=== PATIENT | female | born 1935 | race Caucasian/White ===

== ENCOUNTER 2016-08-11 18:30 | Emergency (ER) | payer OTHER ==
[2016-08-11] MEDS ORDERED: XYLOCAINE-MPF 1% INJ ONE (19:15)
--- NOTE | 2016-08-11 19:28 | PROVIDER DOCUMENTATION ---
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 Denies loc, blurry vision, changes in vision, nausea or vomiting. Denies chest pain, sob, or symptoms that caused her to fall. Review of Systems - Adult - REVIEW OF SYSTEMS - ADULT Constitutional: reports: no symptoms reported. denies: chills, fever, fatique Eyes: reports: no symptoms reported. denies: decreased vision, blurred vision, double vision, eye pain Ears, Nose, Mouth & Throat: reports: no symptoms reported. denies: ear pain, nose pain, throat pain Cardiovascular: reports: no symptoms reported. denies: chest pain, palpitations Respiratory: reports: no symptoms reported. denies: cough, dyspnea on exertion , shortness of breath Gastrointestinal: reports: no symptoms reported. denies: abdominal pain, diarrhea, nausea, vomiting Genitourinary: reports: no symptoms reported. denies: dysuria, discharge, frequency, incontinence Musculoskeletal: reports: see HPI, bone pain, joint pain, muscle aches. denies : back pain, neck pain Integumentary: reports: no symptoms reported. denies: rash Neurological: reports: see HPI, loss of balance. denies: ataxia, dizziness/ vertigo, headache/migraines, paresthesia, seizure, slurred speech, syncope Psychiatric: reports: no symptoms reported Endocrine: reports: no symptoms reported Hematologic/Lymphatic: reports: no symptoms reported Allergic/Immunologic: reports: no symptoms reported All Other Systems: Reviewed and Negative Past History - Adult - PAST MEDICAL HISTORY-ADULT Review of Records: reports: Old Records Reviewed, Nursing Assessment Review, Medications Reviewed, Social history reviewed & non-contributory. Major Childhood Illnesses: reports: denies history Cardiovascular: reports: denies history Respiratory: reports: denies history Gastrointestinal: reports: denies history Obstetrical/Gynecological: reports: denies history Genitourinary: reports: kidney disease Musculoskeletal: reports: denies history Neurological: reports: denies history Endocrine/Immune: reports: denies history Other Conditions: reports: denies history - FAMILY HISTORY Family History: reviewed, not pertinent - SOCIAL HISTORY Smoking: denies, non-smoker Substance Use: none/never Alcohol Use Frequency: never Physical Exam-Injury Related - Physical Exam-Injury Related Initial Vital Signs Reviewed: Yes General Appearance: appears well, alert, no apparent distress Eyes: PERRL/EOMI, pink conjunctivae Head, Ears, Nose, Mouth & Throat: moist mucous membranes, normal ENT inspection , other (hematoma on the right forehead) Neck: non-tender, full range of motion, supple, normal inspection. negative: C- spine tenderness, decresed ROM Respiratory: chest non-tender, lungs clear, normal breath sounds, no pleuratic chest pain, no respiratory distress, no accessory muscle use. negative: respiratory distress, decreased breath sounds, accessory muscle use, crackles, rales, rhonchi, stridor, wheezing Cardiovascular: normal peripheral pulses, regular rate, rhythm Peripheral Pulses: radial (R): 2+, radial (L): 2+ Extremity: other (right pinky has obvious step off at the PIP. 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, no motor/sensory deficits Psych/Mental Status: normal mood/affect, normal thought content, normal thought process, oriented x 3 - Glascow Coma Score Best Eye Response ([place]): (4) open spontaneously Best Verbal Response ([place]): (5) oriented Best Motor Response ([place]): (6) obeys commands Progress - PLAN OF CARE/RESULTS Progress/Plan/Lab Results: Vital Signs Temp Pulse Resp BP Pulse Ox 08/11/16 18:39 98.1 F 87 18 193/76 99 Penicillins Allergy (Verified 08/11/16 20:29) HIVES Cephalexin [Keflex] 500 mg PO BID #14 capsule 08/11/16 Orders Category Date Time Status FINGER(S)-RIGHT [RAD] Stat Exams 08/11/16 18:42 Taken FINGER(S)-RIGHT [RAD] Stat Exams 08/11/16 20:14 Taken HEAD W/O CONTRAST [CT] Stat Exams 08/11/16 18:44 Taken Lidocaine 1% Pf [Xylocaine-Mpf 1%] Med 08/11/16 19:15 Discontinued 5 ml INJ NOW ONE - XRAY 1 XRAY: Right XRAY Study: Hand Impression: Abnormal (dislocation of the 5th digit ER prelim) 2 XRAY: Right XRAY Study: Hand Impression: Normal (reduced. ER prelim) - CT/MRI 1 CT Study: Head Impression: Normal (NAP intracranially per Dr. Diaz, radiology) Procedures - SPLINTING Right Upper Extremity Pre-Procedure Neurovascular Exam: Intact Pre-Fabricated Splint: Other (finger splint) Applied By: Mid-level Post Procedure Neurovascular Exam: Intact Departure - Departure Time of Disposition Order: 20:37 DIAGNOSIS: Hematoma Fall Qualifiers: Encounter type: initial encounter Qualified Code(s): W19.XXXA - Unspecified fall, initial encounter Dislocation, finger Qualifiers: Encounter type: initial encounter Qualified Code(s): S63.259A - Unspecified dislocation of unspecified finger, initial encounter Disposition: HOME 01 Certified Medical Emergency: Emergent Condition: Stable Additional Instructions: Follow up with Dr. Lnua, orthopedic ED Follow Up Instructions: You have been treated by a care provider in the Emergency Department. These instructions are being provided to you so you can have an understanding of how to care for yourself upon discharge. Upon discharge from the Emergency Department, you are responsible for making arrangements for follow-up care by a physician of your choice. Take all prescribed medications as directed. Return to the Emergency Department immediately for any new or worsening symptoms. You may call the Physician Referral phone number at [phone] to obtain a list of Physicians who are taking new patients. Prescriptions: Cephalexin [Keflex] 500 mg PO BID #14 capsule Referrals: Td Mustafa MD [Primary Care Provider] - Kelle Luna MD [STAFF PHYSICIAN] - Attestation - Physician/ SOHEILA Attestation Patient care was provided by Advanced Practice Provider:: Yes Advanced Practice Provider:: Diana Bowles Advanced Practice Provider documentation review:: The Mid-level provider documentation, treatment plan and medical decision making was reviewed by the physician who agrees with all treatment and medical decision making by the [facility].
[2016-08-11 21:12] VITALS: BP 205/71
--- NOTE | 2016-08-11 21:30 | Diag Imaging Result Document ---
PROCEDURE NAME: HEAD W/O CONTRAST - 08/11/2016 CT HEAD WITHOUT CONTRAST.: COMPARISON: None available. FINDINGS: There is diffuse brain atrophy. There is no discrete intracranial mass, mass effect, or intracranial hemorrhage. There is no evidence of acute infarct given the limited sensitivity of CT versus MRI. There is a small subgaleal scalp hematoma at the forehead on the right. The calvaria is grossly intact. IMPRESSION: 1. Diffuse brain atrophy but no evidence of acute intracranial pathology. 2. Small scalp hematoma anteriorly on the right.
--- NOTE | 2016-08-11 23:00 | Diag Imaging Result Document ---
PROCEDURE NAME: FINGER(S)-RIGHT - 08/11/2016 PLAIN RADIOGRAPH OF THE RIGHT 5TH FINGER 3 VIEWS: COMPARISON: None available. FINDINGS: There is dorsal dislocation of the middle phalanx of the 5th finger with respect to the proximal phalanx. No discrete fracture is identified. There is soft tissue edema around the finger. IMPRESSION: Dislocation of the middle phalanx of the 5th finger as described.
--- NOTE | 2016-08-11 23:26 | Diag Imaging Result Document ---
PROCEDURE NAME: FINGER(S)-RIGHT - 08/11/2016 PLAIN RADIOGRAPH OF THE RIGHT 5TH FINGER 3 VIEWS: COMPARISON: None available. FINDINGS: There has been interval reduction of the dislocated 5th finger. However, the proximal IP joint appears to be hyperextended on the true lateral view. There is soft tissue edema around the finger. IMPRESSION: Interval reduction of the dislocated 5th finger as described but still with hyperextension of the proximal IP joint.
== END 2016-08-11 21:14 | disposition home or self-care (01) ==
LOC: ED 18:30
DX: S63.276A Dislocation of unspecified interphalangeal joint of right little finger, initial encounter (principal); M79.644 Pain in right finger(s); M20.001 Unspecified deformity of right finger(s); M79.1 Myalgia; S00.83XA Contusion of other part of head, initial encounter; W10.9XXA Fall (on) (from) unspecified stairs and steps, initial encounter; W22.8XXA Striking against or struck by other objects, initial encounter
CPT/HCPCS: 70450; 73140